=== PATIENT | female | born 1940 | race Two or more races ===

== ENCOUNTER 2021-01-14 03:43 | Emergency (ER) | payer OTHER ==
[~2021-01-14] VITALS: Ht 154.9 cm; Wt 49.1 kg
[2021-01-14] MEDS ORDERED: DEXTROSE 5%-0.9% SODIUM CHL 1,000 ML IV ONE (04:00)
[2021-01-14] MEDS ORDERED: OCTREOTIDE ACETATE 100 MCG/ML VIAL SQ ONE (04:00)
[2021-01-14] MEDS ORDERED: GLUCAGON,HUMAN RECOMBINANT 1 MG VIAL IVP ONE (04:00)
[2021-01-14] MEDS ORDERED: 0.9% SODIUM CHLORIDE 10 ML SYRINGE IVP PRN (04:00)
[2021-01-14 04:44] LABS: BASOPHILS % (AUTO) 0.7 % (0.0-2.0); EOSINOPHILS % (AUTO) 3.9 % (1.0-6.0); HEMATOCRIT 29.8 % (36-46); HEMOGLOBIN 9.8 g/dL (12.0-16.0); LYMPHOCYTES # (AUTO) 0.5 K/uL (1.0-4.8); LYMPHOCYTES % (AUTO) 24.9 % (22.0-44.0); MEAN CORPUSCULAR HEMOGLOBIN 31.3 pg (26.0-34.0); MEAN CORPUSCULAR HGB CONC 32.8 G/dL (31.0-37.0); MEAN CORPUSCULAR VOLUME 95 fL (80-100); MONOCYTES # (AUTO) 0.3 K/uL (0.1-1.0); MONOCYTES % (AUTO) 12.4 % (2.0-9.0); NEUTROPHILS # (AUTO) 1.2 K/uL (1.8-7.7); NEUTROPHILS % (AUTO) 58.1 % (40.0-70.0); RED BLOOD CELL COUNT(AUTO) 3.12 MIL/uL (4.00-5.20); RED CELL DISTRIBUTION WIDTH 14.2 % (11.5-14.5)
[2021-01-14 04:49] LABS: INR 1.1 (0.9-1.1); PROTHROMBIN TIME 11.2 SEC (9.4-11.6)
[2021-01-14 04:51] LABS: CREATININE 1.47 mg/dL (0.60-1.30); POTASSIUM 3.6 mmol/L (3.5-5.1)
[2021-01-14 04:57] LABS: ALBUMIN 2.8 g/dL (3.4-5.0); BILIRUBIN,TOTAL 0.2 mg/dL (0.1-1.0); TOTAL PROTEIN, SERUM 6.3 g/dL (6.4-8.2)
[2021-01-14 04:58] LABS: GLUCOSE,POINT OF CARE 159 MG/DL (70-110)
[2021-01-14 04:59] LABS: LACTIC ACID 1.2 mmol/L (0.4-2.0)
[2021-01-14 05:04] LABS: PLATELET COUNT (AUTO) 54 K/uL (150-450)
[2021-01-14 06:23] LABS: GLUCOSE,POINT OF CARE 267 MG/DL (70-110)
[2021-01-14 07:57] LABS: GLUCOSE,POINT OF CARE 347 MG/DL (70-110)
[2021-01-14 08:44] LABS: APPEARANCE,URINE CLEAR (CLEAR); BILIRUBIN,URINE NEGATIVE (NEGATIVE); GLUCOSE, URINE (UA) 250 mg/dL (NEGATIVE); KETONES,URINE NEGATIVE (NEGATIVE); LEUKOCYTE ESTERASE ,URINE NEGATIVE (NEGATIVE); NITRATE,URINE NEGATIVE (NEGATIVE); OCCULT BLOOD,URINE SMALL (NEGATIVE); PROTEIN,URINE NEGATIVE (NEGATIVE); UROBILINOGEN,URINE 0.2 mg/dL (<=1.0)
[2021-01-14 08:52] LABS: BACTERIA,URINE None Seen /HPF (None Seen); RBC,URINE 0-2 /HPF (0-2); SQUAMOUS EPITHELIAL CELL,UR Few /LPF (None Seen); WBC,URINE None Seen /HPF (0-5)
[2021-01-14 10:00] VITALS: BP 159/66
[2021-01-14 10:24] LABS: GLUCOSE,POINT OF CARE 339 MG/DL (70-110)
[2021-01-14 11:17] LABS: GLUCOSE,POINT OF CARE 312 MG/DL (70-110)
[2021-01-14 12:24] LABS: GLUCOSE,POINT OF CARE 345 MG/DL (70-110)
== END 2021-01-14 12:46 | disposition home or self-care (01) ==
LOC: EMS 03:44
DX: E11.65 Type 2 diabetes mellitus with hyperglycemia (principal); R23.3 Spontaneous ecchymoses; I12.9 Hypertensive chronic kidney disease with stage 1 through stage 4 chronic kidney disease, or unspecified chronic kidney disease; N18.9 Chronic kidney disease, unspecified; Z79.4 Long term (current) use of insulin
CPT/HCPCS: 36415; 80053; 81001; 82962; 83605; 85025; 85610; 93005; 96365; 96366; 96372; 96375; 99291; J1610; J2354; J7042; 82948